=== PATIENT | female | born 1955 | race Caucasian/White ===

== ENCOUNTER 2018-01-06 21:18 | Inpatient (IN) | payer OTHER ==
[2018-01-06 21:49] LABS: ADD MAN DIFF? NO
[2018-01-06 21:53] LABS: BASOPHILS % 0.4 % (0.0-2.0); EOSINOPHILS # 0.1 10^3/ul (0.0-0.5); EOSINOPHILS % 0.6 % (0.0-7.0); HEMATOCRIT 37.9 % (37.0-47.0); HEMOGLOBIN 13.5 g/dl (12.0-16.0); LYMPHOCYTES # 1.7 10^3/ul (0.8-2.9); LYMPHOCYTES % 17.1 % (15.0-51.0); MEAN CORPUSCULAR HEMOGLOBIN 31.3 pg (29.0-33.0); MEAN CORPUSCULAR HGB CONC 35.6 g/dl (32.0-37.0); MEAN CORPUSCULAR VOLUME 87.7 fl (82.0-101.0); MEAN PLATELET VOLUME 11.6 fl (7.4-10.4); MONOCYTE # 0.9 10^3/ul (0.3-0.9); MONOCYTES % 8.7 % (0.0-11.0); NEUTROPHIL # 7.1 10^3/ul (1.6-7.5); NEUTROPHILS % 72.9 % (39.0-77.0); PLATELET COUNT 142 10^3/UL (140-415); RED BLOOD COUNT 4.32 10^6/ul (4.20-5.40); RED CELL DISTRIBUTION WIDTH 11.9 % (11.5-14.5)
[2018-01-06 21:53] LABS: WHITE BLOOD COUNT 9.8 10^3/ul (4.8-10.8)
[2018-01-06 22:19] LABS: LACTIC ACID 1.9 mmol/L (0.5-2.0)
[2018-01-06 22:21] LABS: ANION GAP 18 (8-16); BLOOD UREA NITROGEN 12 mg/dl (7-20); CALCIUM 9.6 mg/dl (8.4-10.2); CARBON DIOXIDE 27 mmol/L (21-31); CHLORIDE 106 mmol/L (97-110); CREATININE 0.86 mg/dl (0.44-1.00); GLUCOSE 126 mg/dl (70-220); POTASSIUM 3.6 mmol/L (3.5-5.1); SODIUM 147 mmol/L (135-144)
[2018-01-06 22:22] LABS: INR 0.93; PROTIME 12.6 Sec (11.9-14.9)
[2018-01-06 22:23] LABS: PARTIAL THROMBOPLASTIN TIME 32.2 Sec (25.0-35.0)
[2018-01-06 22:32] LABS: TROPONIN-I < 0.012 ng/ml (0.00-0.12)
[2018-01-06] MEDS: ASPIRIN 81 MG TAB PO (22:46)
[2018-01-07 00:49] LABS: FREE T4 (FREE THYROXINE) 1.13 ng/dl (0.78-2.44)
[2018-01-07 04:29] LABS: LACTIC ACID 1.1 mmol/L (0.5-2.0)
[2018-01-07 06:58] LABS: LACTIC ACID 1.8 mmol/L (0.5-2.0)
[2018-01-07] MEDS ORDERED: NITROGLYCERIN (SL) 0.4 MG TAB SL (08:00)
[2018-01-07] MEDS ORDERED: ACETAMINOPHEN 325 MG TAB PO (08:00)
[2018-01-07] MEDS: ENOXAPARIN 40 MG/0.4 ML SYG SC (09:36)
[2018-01-07] MEDS: ASPIRIN (EC) 325 MG TAB PO (09:36)
[2018-01-07] MEDS: DILTIAZEM (CD) 120 MG CAP PO (11:21)
[2018-01-07] MEDS: 1/2 NS + KCL 20 MEQ 1,000 ML IV (11:21)
[2018-01-07 12:59] LABS: TROPONIN-I < 0.012 ng/ml (0.00-0.12)
[2018-01-07] MEDS ORDERED: ONDANSETRON 4 MG INJ IV (17:00)
[2018-01-07] MEDS: PANTOPRAZOLE (EC) 40 MG TAB PO (17:14)
[2018-01-07 18:49] LABS: ANION GAP 17 (8-16); BLOOD UREA NITROGEN 13 mg/dl (7-20); CALCIUM 9.4 mg/dl (8.4-10.2); CARBON DIOXIDE 25 mmol/L (21-31); CHLORIDE 106 mmol/L (97-110); CREATININE 0.86 mg/dl (0.44-1.00); GLUCOSE 92 mg/dl (70-220); POTASSIUM 4.4 mmol/L (3.5-5.1); SODIUM 144 mmol/L (135-144)
[2018-01-07 19:03] LABS: TROPONIN-I < 0.012 ng/ml (0.00-0.12)
[2018-01-08] MEDS ORDERED: PANTOPRAZOLE (EC) 40 MG TAB PO (06:00)
== END 2018-01-07 19:30 | disposition home or self-care (01) | DRG 204 ==
LOC: MS3 01-07 00:58 → E/R 21:18
DX: R06.02 Shortness of breath (principal); E87.0 Hyperosmolality and hypernatremia; R00.0 Tachycardia, unspecified; R11.0 Nausea; R19.7 Diarrhea, unspecified; F41.9 Anxiety disorder, unspecified
CPT/HCPCS: 36415; 71045; 80048; 83605; 84439; 84443; 84484; 85025; 85610; 85730; 87040; 93005; 93306; 99285-25